=== PATIENT | female | born 1975 | race Caucasian/White ===

== ENCOUNTER 2017-03-20 16:16 | Emergency (ER) | payer OTHER ==
[~2017-03-20] VITALS: Ht 162.6 cm; Wt 66.8 kg
[2017-03-20 16:27] VITALS: BP 132/90
--- NOTE | 2017-03-20 16:39 | PHYS DOC ---
Adult General Chief Complaint Chief Complaint: BACK PAIN HPI HPI Patient is a 41-year-old female who presents complaining of left flank pain this afternoon. The patient has had some burning with urination and urinary frequency for about 4 days. She took [id number] Uristat. Her symptoms did improve. Today, she began to have left flank pain which worsened about one or 2 hours prior to arrival. She's had anorexia, some nausea, no vomiting. She's had no chills or fever. Last menstrual period completed about 6 days ago. Denies , she has a copper IUD. She has not had a history of frequent UTIs, she did have a kidney infection at the age of 20. She has no chronic medical problems[place] Review of Systems Review of Systems Constitutional: Denies fever or chills [] Respiratory: Denies cough or shortness of breath [] GI: As in history of present illness : As in history of present illness Musculoskeletal: As in history of present illness Physical Exam Physical Exam Constitutional: Well developed, well nourished, no acute distress, non-toxic appearance. Alert, ambulatory, mentating normally. HENT: Normocephalic, atraumatic, bilateral external ears normal, nose normal. [] Eyes: conjunctiva normal, no discharge. [] Neck: Normal range of motion, no stridor. [] Cardiovascular:Heart rate regular rhythm, no murmur [] Lungs & Thorax: Bilateral breath sounds clear to auscultation [] Back: Mild left CVA tenderness Skin: Warm, dry, no erythema, no rash. [] Extremities: No tenderness, no cyanosis, no clubbing, ROM intact, no edema. [] Neurologic: Alert and oriented X 3, normal motor function, normal sensory function, no focal deficits noted. [] EKG EKG [] Radiology/Procedures Radiology/Procedures [] Course & Med Decision Making Course & Med Decision Making Pertinent Labs and Imaging studies reviewed. (See chart for details) 41-year-old female who presents with left flank pain. Her symptoms started a few days ago with urinary burning and urgency. She is in good general health without chronic medical problems. I advised her we will check a urine for blood or infection to determine next steps. She is agreeable to that. [] UA is positive for UTI, culture was ordered. She was given her first dose of Cipro in the ED. Return precautions were given. Dragon Disclaimer Dragon Disclaimer This chart was dictated in whole or in part using Voice Recognition software in a busy, high-work load, and often noisy Emergency Department environment. It may contain unintended and wholly unrecognized errors or omissions. Departure Departure: Impression: Primary Impression: UTI (urinary tract infection) Disposition: 01 HOME, SELF-CARE Condition: STABLE Referrals: DORETHA SHUKLA DO (PCP) Patient Instructions: Urinary Tract Infection, [id number] Additional Instructions: Rest, fluids. Your next dose of antibiotic is due in about 12 hours, you can wait until tomorrow morning to take it. Ibuprofen 600 mg every 6-8 hours as needed for pain. If needed for more severe pain, hydrocodone as prescribed. Not while driving, it will be sedating. It is okay to combine this with ibuprofen. If you get worse, fever, chills, vomiting, return, you may need to be admitted for IV antibiotics. Scripts Hydrocodone Bit/Acetaminophen (NORCO 5-325 TABLET) 1 Each Tablet 1-2 TAB PO Q4-6HRS, #8 TAB Prov: MELLO BROOKS MD 03/20/17 Ciprofloxacin Hcl (CIPRO) 250 Mg Tablet 1 TAB PO BID for uti, #14 TAB Prov: MELLO BROOKS MD 03/20/17 MELLO BROOKS MD March 20, 2017 16:39
[2017-03-20 17:20] LABS: BILIRUBIN,URINE NEG (NEG); CLARITY,URINE CLOUDY; COLOR,URINE YELLOW; GLUCOSE,URINE NEG (NEG); NITRITE,URINE NEG (NEG); UROBILINOGEN,URINE 0.2 mg/dL (0.2 mg/dL)
[2017-03-20 17:21] LABS: BACTERIA,URINE 0 /HPF (0-FEW); WBC,URINE >40 /HPF (0-4)
[2017-03-20] MEDS ORDERED: CIPR250T30 PO (17:36)
[2017-03-20] MEDS ORDERED: HYDR-971 PO (17:36)
[2017-03-20] MEDS ORDERED: CIPROFLOXACIN HCL 500 MG TABLET PO ONE (17:45)
== END 2017-03-20 17:43 | disposition home or self-care (01) ==
LOC: ER 16:16
DX: N39.0 Urinary tract infection, site not specified (principal); R63.0 Anorexia
CPT/HCPCS: 81001; 87086; 99284

== ENCOUNTER 2019-05-29 09:22 | Emergency (ER) | payer OTHER ==
[~2019-05-29] VITALS: Ht 162.6 cm; Wt 77.0 kg
[~2019-05-29 09:22] MED LIST: CIPR250T30 PO; HYDR-3165 PO
[2019-05-29] MEDS ORDERED: IV NORMAL SALINE 1,000ML 1,000 ML IV ONE (09:45)
[2019-05-29] MEDS ORDERED: KETOROLAC 15 MG/ML VIAL. IV ONE (09:45)
--- NOTE | 2019-05-29 10:11 | PHYS DOC ---
Past History Past Medical History: Kidney Infection, UTI Past Surgical History: Hysterectomy, Tonsillectomy, Other Smoking: Non-smoker Alcohol Use: None Drug Use: None Adult General Chief Complaint Chief Complaint: BACK PAIN OR INJURY HPI HPI Patient is a 43 year old female who presents with back pain. The pain started on Saturday with bilateral flank pain. It is a burning sensation that is constant and radiates to the upper buttock. The first 24 hours were the worst with the pain. She tried ibuprofen but it did not help the pain. It helps to change positions, and nothing seems to make it worse. She repots having pyelonephritis when she was 20 and again two years ago. Yesterday morning she went to urgent care and they did a urinalysis and said that it was negative for an infection, but showed microscopic hematuria. They recommended she come to the ED to get a CT scan for further evaluation. Her pain has not gotten any better, so she decid ed to come to the ED today. This morning she started having diarrhea. Denies hematochezia. She is nauseated without vomiting. Her pain is currently a 7/10. She denies urinary urgency, frequency, dysuria, and visible hematuria. History of prior hysterectomy. Review of Systems Review of Systems Constitutional: Denies fever or chills Eyes: Denies redness or eye pain HENT: Denies nasal congestion or sore throat Respiratory: Denies cough or shortness of breath Cardiovascular: Denies chest pain or palpitations GI: Reports abdominal pain and nausea, denies vomiting : Denies dysuria or hematuria Musculoskeletal: Reports back pain, denies joint pain Integument: Denies rash or skin lesions Neurologic: Denies headache, focal weakness or sensory changes Complete systems were reviewed and found to be within normal limits, except as documented in this note. Current Medications Current Medications Current Medications Medications (Trade) Dose Ordered Sig/Fredy Start Time Stop Time Status Last Admin Dose Admin Ketorolac Tromethamine (Toradol 15mg Vial) 15 mg 1X ONCE 05/29/19 09:45 05/29/19 09:47 DC Sodium Chloride 1,000 ml @ 1,000 mls/hr 1X ONCE 05/29/19 09:45 05/29/19 10:44 Allergies Allergies Allergies Coded Allergies Type Severity Reaction Last Updated Verified No Known Drug Allergies 03/20/17 No Physical Exam Physical Exam Constitutional: Well developed, well nourished, no acute distress, non-toxic appearance HENT: Normocephalic, atraumatic, oropharynx moist Eyes: PERRL, EOMI, conjunctiva normal, no discharge Neck: Normal range of motion, no tenderness, supple Cardiovascular: Heart rate normal, regular rhythm Lungs & Thorax: Bilateral breath sounds clear to auscultation, no wheezing Abdomen: Soft, tenderness to palpation at McBurny's point, no rebound or guarding, no peritoneal signs Skin: Warm, dry, no erythema, no rash Back: tenderness to palpation in lower thoracic and lumbar paravertebral areas bilaterally, bilateral CVA tenderness Extremities: No tenderness, ROM intact, no edema Neurologic: Alert and oriented X 3, normal motor function, normal sensory function, no focal deficits noted Psychologic: Affect normal, judgement normal, mood normal Current Patient Data Vital Signs Vital Signs Date Time Temp Pulse Resp B/P (MAP) Pulse Ox O2 Delivery O2 Flow Rate FiO2 05/29/19 09:32 92 18 100 Room Air EKG EKG [] Radiology/Procedures Radiology/Procedures PROCEDURE: CT ABDOMEN PELVIS WO CONTRAST PQRS Compliance Statement: One or more of the following individualized dose reduction techniques were utilized for this examination: 1. Automated exposure control 2. Adjustment of the mA and/or kV according to patient size 3. Use of iterative reconstruction technique CT abdomen/pelvis without contrast 05/29/2019 9:34 AM INDICATION: Flank pain for 4 days. COMPARISON: None available TECHNIQUE: Multiple axial CT images of the abdomen and pelvis were obtained without intravenous contrast. Coronal and sagittal reformats are provided. FINDINGS: Lung bases are clear. Heart size is within normal limits. Evaluation of the solid abdominal viscera is limited by lack of intravenous contrast. Liver, spleen, bilateral adrenal glands, pancreas and gallbladder are normal in appearance. The abdominal aorta is normal in course and caliber. There are no pathologically enlarged lymph nodes in the abdomen and pelvis. There is no abdominal free fluid. There is no free intraperitoneal air. Lap band post surgical changes are visualized. Few nonenlarged lymph nodes are identified in the right lower quadrant measuring up to 7 mm by short axis. Evaluation of the bowel is limited by lack of oral contrast. Small and large bowel are normal in caliber. There is no evidence for bowel obstruction. There are no pericolonic inflammatory changes. A normal, nondilated appendix is visualized without adjacent inflammatory changes. Evaluation of the rectum is limited by underdistention. The kidneys are relatively symmetric in appearance. There is no suspicious renal mass within the limitations of a noncontrast examination. There is no hydronephrosis. There are no calculi within the kidneys, ureters or urinary bladder. Urinary bladder is within normal limits given degree of distention. No suspicious pelvic mass is identified. No suspicious osseous abnormality is identified. IMPRESSION: 1. No evidence for bowel obstruction or inflammation. Appendix is normal in appearance. 2. Few nonenlarged lymph nodes are identified in the right lower quadrant. Evaluation of adjacent bowel is limited by lack of oral contrast. No pericecal inflammatory changes are identified. 3. No evidence for obstructive uropathy. Electronically signed by: Darcy Betancourt MD (05/29/2019 10:37 AM) [id number] Course & Med Decision Making Course & Med Decision Making Pertinent Labs and Imaging studies reviewed. (See chart for details) Patient is a 43-year-old female who presents with bilateral back pain. The pain started 4 days ago, is a burning sensation in her lower back that radiates to her buttock. Yesterday she visited urgent care who found hematuria and told her to come to the ED for further evaluation. On physical exam she has bilateral CVA tenderness and tenderness to palpation at McBurny's point. CT scan showed no significant abnormalities. Laboratory evaluation was positive for hematuria, but without signs of infection. No history of trauma. Patient stable for discharge with outpatient follow-up with PCP/urology. Urology referral given.. Discussed findings and plan with patient, who acknowledges understanding and agreement. Dragon Disclaimer Dragon Disclaimer This electronic medical record was generated, in whole or in part, using a voice recognition dictation system. Departure Departure: Impression: Primary Impression: Flank pain Disposition: HOME, SELF-CARE Condition: STABLE Referrals: DORETHA SHUKLA DO (PCP) JASWINDER MORGAN Patient Instructions: Flank Pain, [id number], Hematuria, Adult Scripts Orphenadrine Citrate (ORPHENADRINE CITRATE) 100 Mg Tablet.er 1 TAB PO BID for back pain, #14 TAB 1 Refill Prov: SADIE KAISER DO 05/29/19 SADIE KAISER DO May 29, 2019 10:11
[2019-05-29 10:32] VITALS: BP 101/58
[2019-05-29 10:34] LABS: BACTERIA,URINE FEW /HPF (0-FEW); BILIRUBIN,URINE NEG (NEG); CLARITY,URINE CLEAR; COLOR,URINE YELLOW; GLUCOSE,URINE NEG (NEG); HYALINE CASTS, URINE OCC /HPF; NITRITE,URINE NEG (NEG); SQUAMOUS EPITHELIAL CELL,UR FEW /LPF; UROBILINOGEN,URINE 0.2 mg/dL (0.2 mg/dL); WBC,URINE RARE /HPF (0-4)
[2019-05-29 10:38] LABS: BASO % 0 % (0-3); EOS # 0.1 x10^3/uL (0.0-0.7); EOS % 1 % (0-3); HEMATOCRIT 42.5 % (36.0-47.0); HEMOGLOBIN 14.1 g/dL (12.0-15.5); LYMPH # 1.1 x10^3/uL (1.0-4.8); LYMPH % 23 % (24-48); MEAN CORPUSCULAR HEMOGLOBIN 29 pg (25-35); MEAN CORPUSCULAR HGB CONC 33 g/dL (31-37); MEAN CORPUSCULAR VOLUME 88 fL (79-100); MONO # 0.5 x10^3/uL (0.0-1.1); MONO % 10 % (0-9); NEUT # 3.2 x10^3uL (1.8-7.7); NEUT % 66 % (31-73); PLATELET COUNT 318 x10^3/uL (140-400); RED BLOOD COUNT 4.83 x10^6/uL (3.50-5.40); RED CELL DISTRIBUTION WIDTH 13.4 % (11.5-14.5); WHITE BLOOD COUNT 4.9 x10^3/uL (4.0-11.0)
--- NOTE | 2019-05-29 10:40 | RAD ---
PQRS Compliance Statement: One or more of the following individualized dose reduction techniques were utilized for this examination: 1. Automated exposure control 2. Adjustment of the mA and/or kV according to patient size 3. Use of iterative reconstruction technique CT abdomen/pelvis without contrast 05/29/2019 9:34 AM INDICATION: Flank pain for 4 days. COMPARISON: None available TECHNIQUE: Multiple axial CT images of the abdomen and pelvis were obtained without intravenous contrast. Coronal and sagittal reformats are provided. FINDINGS: Lung bases are clear. Heart size is within normal limits. Evaluation of the solid abdominal viscera is limited by lack of intravenous contrast. Liver, spleen, bilateral adrenal glands, pancreas and gallbladder are normal in appearance. The abdominal aorta is normal in course and caliber. There are no pathologically enlarged lymph nodes in the abdomen and pelvis. There is no abdominal free fluid. There is no free intraperitoneal air. Lap band post surgical changes are visualized. Few nonenlarged lymph nodes are identified in the right lower quadrant measuring up to 7 mm by short axis. Evaluation of the bowel is limited by lack of oral contrast. Small and large bowel are normal in caliber. There is no evidence for bowel obstruction. There are no pericolonic inflammatory changes. A normal, nondilated appendix is visualized without adjacent inflammatory changes. Evaluation of the rectum is limited by underdistention. The kidneys are relatively symmetric in appearance. There is no suspicious renal mass within the limitations of a noncontrast examination. There is no hydronephrosis. There are no calculi within the kidneys, ureters or urinary bladder. Urinary bladder is within normal limits given degree of distention. No suspicious pelvic mass is identified. No suspicious osseous abnormality is identified. IMPRESSION: 1. No evidence for bowel obstruction or inflammation. Appendix is normal in appearance. 2. Few nonenlarged lymph nodes are identified in the right lower quadrant. Evaluation of adjacent bowel is limited by lack of oral contrast. No pericecal inflammatory changes are identified. 3. No evidence for obstructive uropathy. Electronically signed by: Darcy Betancourt MD (05/29/2019 10:37 AM) [id number]
[2019-05-29 10:57] LABS: ALBUMIN 3.6 g/dL (3.4-5.0); ALBUMIN/GLOBULIN RATIO 0.9 (1.0-1.7); CALCIUM 9.2 mg/dL (8.5-10.1); CREATININE 0.9 mg/dL (0.6-1.0); MAGNESIUM 2.1 mg/dL (1.8-2.4); POTASSIUM 4.4 mmol/L (3.5-5.1); TOTAL BILIRUBIN 0.2 mg/dL (0.2-1.0); TOTAL PROTEIN 7.5 g/dL (6.4-8.2)
[2019-05-29] MEDS ORDERED: ORPH-16 PO (11:01)
== END 2019-05-29 11:19 | disposition home or self-care (01) ==
LOC: ER 09:22
DX: R10.9 Unspecified abdominal pain (principal); M54.6 Pain in thoracic spine; M54.5 Low back pain; R19.7 Diarrhea, unspecified; Z87.440 Personal history of urinary (tract) infections; Z90.710 Acquired absence of both cervix and uterus
CPT/HCPCS: 36415; 74176; 80053; 81001; 83690; 83735; 85025; 96361; 96374; 99285; J1885; J7030